=== PATIENT | male | born 1970 | race African-American/Black ===

== ENCOUNTER 2016-10-01 10:55 | Inpatient (IN) | payer OTHER ==
[2016-10-01 11:12] VITALS: BMI 26.6
--- NOTE | 2016-10-01 13:22 | HP ---
CIWA Score - CIWA Score Nausea/Vomitin-No Nausea/No Vomiting Muscle Tremors: 4-Moderate,w/Arms Extend Anxiety: 3 Agitation: 4-Moderately Restless Paroxysmal Sweats: 3 Orientation: 0-Oriented Tacttile Disturbances: 0-None Auditory Disturbances: 0-None Visual Disturbances: 0-None Headache: 0-None Present CIWA-Ar Total Score: 14 Admission ROS BHS - HPI Chief Complaint: I need to stop drinking and get it together. Allergies/Adverse Reactions: Allergies Allergy/AdvReac Type Severity Reaction Status Date / Time Iodine and Iodide Containing Allergy Severe Swelling Verified 10/01/16 11:36 Produc shellfish derived Allergy Severe Swelling Verified 10/01/16 11:36 No Known Drug Allergies Allergy Verified 10/01/16 11:36 History of Present Illness: pr Exam Limitations: No Limitations - Ebola screening Have you traveled outside of the country in the last 21 days: No Have you had contact with anyone from an Ebola affected area: No Have you been sick,other than usual withdrawal symptoms: No Do you have a fever: No - Review of Systems Constitutional: No Symptoms Reported, Night Sweats EENT: reports: No Symptoms Reported Respiratory: reports: No Symptoms reported Cardiac: reports: Syncope GI: reports: Diarrhea, Poor Fluid Intake : reports: No Symptoms Reported Musculoskeletal: reports: Joint Pain (shoulder pain left side) Integumentary: reports: Flushing, Sweating Neuro: reports: Tingling, Tremors Endocrine: reports: Excessive Sweating, Flushing, Intolerance to Cold, Intolerance to Heat Hematology: reports: No Symptoms Reported Psychiatric: reports: Judgement Intact, Mood/Affect Appropiate, Orientated x3, Agitated, Anxious Other Systems: Reviewed and Negative Patient History - Patient Medical History Hx Anemia: No Hx Asthma: No Hx Chronic Obstructive Pulmonary Disease (COPD): No Hx Cancer: No Hx Cardiac Disorders: No Hx Congestive Heart Failure: No Hx Hypertension: Yes Hx Hypercholesterolemia: No Hx Pacemaker: No HX Cerebrovascular Accident: No Hx Seizures: No Hx Dementia: No Hx Diabetes: No Hx Gastrointestinal Disorders: Yes (stomach ulcer) Hx Liver Disease: No Hx Genitourinary Disorders: No Hx Sexually Transmitted Disorders: No Hx Renal Disease (ESRD): No Hx Thyroid Disease: No Hx Human Immunodeficiency Virus (HIV): No (NEGATIVE HX) Hx Hepatitis C: No Hx Depression: Yes Hx Suicide Attempt: Yes (pill overdose at age 29) Hx Bipolar Disorder: Yes (diagnosed in 1997 with schizoeffective tendencies, wason depacote, seroquel) Hx Schizophrenia: Yes (schizoaffective disorder) - Patient Surgical History Past Surgical History: Yes Hx Neurologic Surgery: No Hx Cataract Extraction: No Hx Cardiac Surgery: No Hx Lung Surgery: No Hx Breast Surgery: No Hx Breast Biopsy: No Hx Abdominal Surgery: Yes (perforated peptic ulcer in [place] in 1990) Hx Appendectomy: No Hx Cholecystectomy: No Hx Genitourinary Surgery: No Hx Section: No Hx Orthopedic Surgery: No Anesthesia Reaction: No - PPD History Previous Implant?: Yes Documented Results: Positive w/o proof Results: (-) cxr-10/24/15 - Reproductive History Patient is a Female of Child Bearing Age (11 -55 yrs old): No - Smoking Cessation Smoking history: Current every day smoker Have you smoked in the past 12 months: Yes Aproximately how many cigarettes per day: 10 Cigars Per Day: 0 Hx Chewing Tobacco Use: No Initiated information on smoking cessation: Yes 'Breaking Loose' booklet given: 10/01/16 - Substance & Tx. History Hx Alcohol Use: Yes Hx Substance Use: Yes Substance Use Type: Alcohol, Cocaine, Marijuana Hx Substance Use Treatment: Yes - Substances Abused Cocaine Route: Inhalation Frequency: Daily Amount used: $60-70 Age of first use: 20 Date of Last Use: 09/30/16 Alcohol-bacilio/beer Route: Oral Frequency: Daily Amount used: 2-3 6 pks./3-4 pts. Age of first use: 14 Date of Last Use: 10/01/16 Marijuana Route: Smoking Frequency: 1-2 times per week Amount used: $20 Age of first use: 20 Date of Last Use: 09/30/16 Family Disease History - Family Disease History Family Disease History: Heart Disease: Mother (Heart attack), Other: Father ( alcohol ) Admission Physical Exam BHS - Vital Signs Vital Signs: Vital Signs - 24 hr 10/01/16 11:01 Temperature 96.0 F L Pulse Rate 91 H Respiratory 20 Rate Blood Pressure 135/86 - Physical General Appearance: Yes: Appropriately Dressed, Moderate Distress, Tremorous, Irritable, Sweating, Anxious HEENTM: Yes: Hearing grossly Normal, Normal Voice Respiratory: Yes: Chest Non-Tender, Lungs Clear, Normal Breath Sounds, Respiratory Distress Neck: Yes: No masses,lesions,Nodules Breast: Yes: Within Normal Limits Cardiology: Yes: Regular Rhythm, Regular Rate, S1, S2 Abdominal: Yes: Normal Bowel Sounds, Non Tender, Soft Genitourinary: Yes: Within Normal Limits Back: Yes: Normal Inspection Musculoskeletal: Yes: full range of Motion Extremities: Yes: Normal Capillary Refill, Normal Inspection, Non-Tender, Tremors Neurological: Yes: Fully Oriented, Alert, Normal Response Integumentary: Yes: Normal Color, Diaphoresis Lymphatic: Yes: Within Normal Limits - Diagnostic (1) Cannabis dependence Current Visit: Yes Status: Chronic (2) Cocaine dependence Current Visit: Yes Status: Chronic Qualifiers: Substance use status: uncomplicated Qualified Code(s): F14.20 - Cocaine dependence, uncomplicated (3) Nicotine dependence Current Visit: Yes Status: Chronic Qualifiers: Nicotine product type: cigarettes Substance use status: uncomplicated Qualified Code(s): F17.210 - Nicotine dependence, cigarettes, uncomplicated (4) Alcohol dependence with uncomplicated withdrawal Current Visit: Yes Status: Chronic (5) Hypertension Current Visit: Yes Status: Chronic Qualifiers: Hypertension type: essential hypertension Cleared for Admission [facility] - Detox or Rehab [facility] Level of Care: Medically Managed Detox Regimen/Protocol: Librium [facility] Breath Alcohol Content Breath Alcohol Content: 0.026 Urine Drug Screen - Results Drug Screen Negative: No Urine Drug Screen Results: THC-Marijuana, ISH-Cocaine
[2016-10-01] MEDS ORDERED: MENTHOL/PHENOL 1 EACH UD MM PRN (13:23)
[2016-10-01] MEDS ORDERED: IBUPROFEN 400 MG TABLET (FP) PO PRN (13:23)
[2016-10-01] MEDS ORDERED: MAGNESIUM CITRATE 300 ML BOTTLE PO PRN (13:23)
[2016-10-01] MEDS ORDERED: ACETAMINOPHEN 325 MG TABLET (FP) PO PRN (13:23)
[2016-10-01] MEDS ORDERED: diphenhydrAMINE HCL 50 MG CAPSULE PO PRN (13:23)
[2016-10-01] MEDS ORDERED: MAGNESIUM HYDROX 2400MG/30ML ORAL SUSPENSION 30 ML CUP PO PRN (13:23)
[2016-10-01] MEDS ORDERED: guaiFENesin/D-METHORPHAN HB 10 ML UNIT-DOSE CUPS PO PRN (13:23)
[2016-10-01] MEDS ORDERED: chlordiazePOXIDE HCL 25 MG CAPSULE PO PRN (13:23)
[2016-10-01] MEDS ORDERED: LOPERAMIDE HCL 2 MG CAPSULE PO PRN (13:23)
[2016-10-01] MEDS ORDERED: P-EPHED 60MG/TRIPROLIDI 2.5MG TABLET PO PRN (13:23)
[2016-10-01] MEDS ORDERED: MAG HYDROX/AL HYDROX/SIMETH 30 ML UNIT-DOSE CUP PO PRN (13:23)
[2016-10-01] MEDS ORDERED: hydrOXYzine PAMOATE 50 MG CAPSULE (FP) PO PRN (13:23)
[2016-10-01] MEDS: LISINOPRIL 10 MG TABLET (FP) PO SCH (13:49)
[2016-10-01] MEDS: HYDROCHLOROTHIAZIDE 25 MG TABLET (FP) PO SCH (13:49)
[2016-10-01] MEDS ORDERED: chlordiazePOXIDE HCL 25 MG CAPSULE PO ONE (14:00)
--- NOTE | 2016-10-01 16:37 | CONSULT ---
[facility] Psychiatric Consult - Data Date of interview: 10/02/16 Admission source: [facility] Identifying data: This is 46 years old male with Bipolar disorder history iontoxicated with: Alcohol, Cannabis, Cocaine, Opioids and Nicotine Substance Abuse History: Smoking history: Current every day smoker. Have you smoked in the past 12 months: Yes. Aproximately how many cigarettes per day: 10. Cigars Per Day: 0. Hx Chewing Tobacco Use: No. Initiated information on smoking cessation: Yes. 'Breaking Loose' booklet given: 10/01/16. - Substance & Tx. History. Hx Alcohol Use: Yes. Hx Substance Use: Yes. Substance Use Type : Alcohol, Cocaine, Marijuana. Hx Substance Use Treatment: Yes. - Substances Abused. Cocaine. Route: Inhalation. Frequency: Daily. Amount used: $60- 70. Age of first use: 20. Date of Last Use: 09/30/16. Alcohol-bacilio/ beer. Route: Oral. Frequency: Daily. Amount used: 2-3 6 pks./3-4 pts. Age of first use: 14. Date of Last Use: 10/01/16. Marijuana. Route: Smoking. Frequency: 1-2 times per week. Amount used: $20. Age of first use: 20. Date of Last Use: 09/30/16 Medical History: HTN, Anemia history, PPD+ hisotyr, Syncope history, Peptic Ulcer history Psychiatric History: Patient reports to carry Bipolar disorder with most recent psychiatric admission on: 2014 at [facility], reports currently taking: Trazodone 100mg po qhs. Seroquelm 100mg poqd, 300mg po qhs. Depakote 500mg po bid Physical/Sexual Abuse/Trauma History: Denies Additional Comment: Trazodone 100mg po qhs. Seroquelm 100mg poqd, 300mg po qhs. Depakote 500mg po bid Mental Status Exam - Mental Status Exam Alert and Oriented to: Person Cognitive Function: Fair Patient Appearance: Unkempt Mood: Anxious Affect: Appropriate Patient Behavior: Sedated Speech Pattern: Delayed Voice Loudness: Mildly Soft/Quiet Thought Process: Circumstantial Thought Disorder: Being Controlled Hallucinations: Denies Suicidal Ideation: Denies Homicidal Ideation: Denies Insight/Judgement: Fair Sleep: Difficulty falling asleep Appetite: Fair Muscle strength/Tone: Normal Gait/Station: Shuffling Additional Comments: Trazodone 100mg po qhs. Seroquelm 100mg poqd, 300mg po qhs. Depakote 500mg po bid Psychiatric Findings - Problem List ([place] 1, 2,3) (1) Alcohol dependence with uncomplicated withdrawal Status: Chronic (2) Cannabis dependence Status: Chronic (3) Cocaine dependence Status: Chronic Qualifiers: Substance use status: uncomplicated Qualified Code(s): F14.20 - Cocaine dependence, uncomplicated (4) Nicotine dependence Status: Chronic Qualifiers: Nicotine product type: cigarettes Substance use status: uncomplicated Qualified Code(s): F17.210 - Nicotine dependence, cigarettes, uncomplicated (5) Alcohol dependence Status: Acute (6) Opioid dependence Status: Acute (7) Schizoaffective disorder Status: Acute (8) Cannabis dependence, uncomplicated Status: Chronic (9) Opioid dependence with withdrawal Status: Chronic (10) Bipolar disorder Status: Acute - Initial Treatment Plan Initial Treatment Plan: Trazodone 100mg po qhs. Seroquelm 100mg poqd, 300mg po qhs. Depakote 500mg po bid
[2016-10-01] MEDS: chlordiazePOXIDE HCL 25 MG CAPSULE PO SCH ×2 (17:29→23:11)
[2016-10-01 20:04] LABS: URINE APPEARANCE CLEAR; URINE BILIRUBIN NEGATIVE (NEGATIVE); URINE BLOOD NEGATIVE (NEGATIVE); URINE COLOR LTYELLOW; URINE GLUCOSE (UA) NEGATIVE (NEGATIVE); URINE KETONE NEGATIVE (NEGATIVE); URINE LEUK ESTERASE NEGATIVE (NEGATIVE); URINE NITRITE NEGATIVE (NEGATIVE); URINE PROTEIN NEGATIVE (NEGATIVE); URINE UROBILINOGEN NEGATIVE E.U./dl (0.2-1.0)
[2016-10-01 20:35] LABS: HIV 1 & 2 AB NEGATIVE; HIV 1 AGp24 NEGATIVE
[2016-10-01] MEDS: THIAMINE HCL 100 MG TABLET (FP) PO SCH (23:11)
[2016-10-02] MEDS: chlordiazePOXIDE HCL 25 MG CAPSULE PO SCH ×4 (06:06→22:36)
[2016-10-02 09:49] LABS: MCH 30.2 pg (25.7-33.7); MCHC 32.9 g/dl (32.0-35.9); MEAN CELL VOLUME 91.9 fl (80-96); MEAN PLT VOLUME 10.2 fl (7.5-11.1); PLATELET COUNT 190 K/MM3 (134-434); RDW 14.5 % (11.9-15.9); WHITE BLOOD COUNT 8.6 K/mm3 (4.0-10.0)
[2016-10-02 10:16] LABS: ALBUMIN 3.5 g/dl (3.4-5.0); ALK PHOS 109 U/L (45-117); ANION GAP 7 (8-16); BILIRUBIN,TOTAL 0.3 mg/dL (0.2-1.0); CALCIUM 9.1 mg/dL (8.5-10.1); CO2 29 mmol/L (21-32); CREATININE 0.8 mg/dL (0.7-1.3); GLUCOSE,RANDOM 63 mg/dL (74-106); SGOT/AST 95 U/L (15-37); SGPT/ALT 336 U/L (12-78); TOT PROT 7.2 g/dl (6.4-8.2)
[2016-10-02] MEDS: PRENATAL VITAMINS W/ FOLIC ACID TABLET (FP) PO SCH (10:22)
[2016-10-02] MEDS: QUEtiapine FUMARATE 100 MG TABLET (FP) PO SCH (10:22)
[2016-10-02] MEDS: DIVALPROEX SODIUM 500 MG TABLET E.C. PO SCH ×2 (10:22→22:36)
[2016-10-02] MEDS: NICOTINE 21 MG/24 HOURS TOPICAL PATCH TD SCH (10:23)
[2016-10-02] MEDS: LISINOPRIL 10 MG TABLET (FP) PO SCH (10:24)
[2016-10-02] MEDS: HYDROCHLOROTHIAZIDE 25 MG TABLET (FP) PO SCH (10:24)
--- NOTE | 2016-10-02 10:56 | PN ---
[facility] CIWA - CIWA Score Nausea/Vomitin-No Nausea/No Vomiting Muscle Tremors: 4-Moderate,w/Arms Extend Anxiety: 3 Agitation: 4-Moderately Restless Paroxysmal Sweats: 3 Orientation: 0-Oriented Tacttile Disturbances: 0-None Auditory Disturbances: 0-None Visual Disturbances: 0-None Headache: 0-None Present CIWA-Ar Total Score: 14 BHS Progress Note (SOAP) Subjective: agitation anxiety sweats shakes interrupted sleep Objective: 10/02/16 10:54 Vital Signs Temperature 98.8 F 10/02/16 10:12 Pulse Rate 81 10/02/16 10:12 Respiratory Rate 18 10/02/16 10:12 Blood Pressure 143/91 10/02/16 10:12 O2 Sat by Pulse Oximetry (%) Laboratory Tests 10/01/16 10/01/16 10/01/16 12:30 13:15 14:00 WBC RBC Hgb Hct MCV MCHC RDW Plt Count MPV Sodium Potassium Chloride Carbon Dioxide Anion Gap BUN Creatinine Creat Clearance w eGFR Random Glucose Calcium Total Bilirubin AST ALT Alkaline Phosphatase Total Protein Albumin Urine Color Ltyellow Urine Appearance Clear Urine pH 7.0 Ur Specific [place] 1.011 Urine Protein Negative Urine Glucose (UA) Negative Urine Ketones Negative Urine Blood Negative Urine Nitrite Negative Urine Bilirubin Negative Urine Urobilinogen Negative Ur Leukocyte Esterase Negative Hepatitis C Antibody >11.0 H HIV 1&2 Antibody Screen Negative HIV P24 Antigen Negative 10/02/16 10/02/16 06:00 06:00 WBC 8.6 D RBC 4.13 Hgb 12.5 Hct 37.9 MCV 91.9 MCHC 32.9 RDW 14.5 Plt Count 190 MPV 10.2 Sodium 141 Potassium 4.0 Chloride 105 Carbon Dioxide 29 Anion Gap 7 L BUN 10 Creatinine 0.8 Creat Clearance w eGFR > 60 Random Glucose 63 L D Calcium 9.1 Total Bilirubin 0.3 D AST 95 H D ALT 336 H D Alkaline Phosphatase 109 D Total Protein 7.2 Albumin 3.5 Urine Color Urine Appearance Urine pH Ur Specific [place] Urine Protein Urine Glucose (UA) Urine Ketones Urine Blood Urine Nitrite Urine Bilirubin Urine Urobilinogen Ur Leukocyte Esterase Hepatitis C Antibody HIV 1&2 Antibody Screen HIV P24 Antigen elevated ast/alt; repeat labs d/c tylenol awake/alert ambulating no acute distress Assessment: 10/02/16 10:55 withdrawal sx Plan: continue detox increase fluids f/u pending labs
--- NOTE | 2016-10-02 12:54 | EKG ---
Test Reason : Blood Pressure : / mmHG Vent. Rate : 089 BPM Atrial Rate : 089 BPM P-R Int : 158 ms QRS Dur : 096 ms QT Int : 344 ms P-R-T Axes : 057 073 010 degrees QTc Int : 418 ms NORMAL SINUS RHYTHM VOLTAGE CRITERIA FOR LEFT VENTRICULAR HYPERTROPHY ABNORMAL ECG NO PREVIOUS ECGS AVAILABLE Confirmed by DOLLY PARKS MD ([id number]) on 10/02/2016 12:53:49 PM Referred By: Confirmed By:DOLLY PARKS MD
[2016-10-02] MEDS: traZODone HCL 100 MG TABLET (FP) PO SCH (22:36)
[2016-10-02] MEDS: QUEtiapine FUMARATE 300 MG TABLET PO SCH (22:36)
[2016-10-02] MEDS: THIAMINE HCL 100 MG TABLET (FP) PO SCH (22:36)
[2016-10-03] MEDS: chlordiazePOXIDE HCL 25 MG CAPSULE PO SCH ×2 (06:01→10:59)
[2016-10-03 09:58] LABS: SGOT/AST 98 U/L (15-37); SGPT/ALT 321 U/L (12-78)
--- NOTE | 2016-10-03 10:05 | PN ---
S CIWA - CIWA Score Nausea/Vomitin Muscle Tremors: 3 Anxiety: 3 Agitation: 2 Paroxysmal Sweats: 1-Minimal Palms Moist Orientation: 0-Oriented Tacttile Disturbances: 1-Very Mild Itch/Numbness Auditory Disturbances: 1-Very Mild Visual Disturbances: 1-Very Mild Sensitivity Headache: 2-Mild CIWA-Ar Total Score: 17 BHS Progress Note (SOAP) Subjective: ALERT,IRRITABLE,ANXIOUS,INTERRUPTED SLEEP,TREMOR Objective: 10/03/16 10:04 Vital Signs Temperature 97.9 F 10/03/16 09:43 Pulse Rate 98 H 10/03/16 09:43 Respiratory Rate 20 10/03/16 09:43 Blood Pressure 130/89 10/03/16 09:43 O2 Sat by Pulse Oximetry (%) REPEAT ALT.AST PENDING Assessment: 10/03/16 10:05 WITHDRAWAL SYMPTOM Plan: CONTINUE DETOX
[2016-10-03] MEDS: NICOTINE 21 MG/24 HOURS TOPICAL PATCH TD SCH (10:58)
[2016-10-03] MEDS: QUEtiapine FUMARATE 100 MG TABLET (FP) PO SCH (10:59)
[2016-10-03] MEDS: HYDROCHLOROTHIAZIDE 25 MG TABLET (FP) PO SCH (10:59)
[2016-10-03] MEDS: LISINOPRIL 10 MG TABLET (FP) PO SCH (10:59)
[2016-10-03] MEDS: DIVALPROEX SODIUM 500 MG TABLET E.C. PO SCH ×2 (10:59→22:55)
[2016-10-03] MEDS: NICOTINE POLACRILEX 4 MG GUM BC PRN ×2 (10:59→14:32)
[2016-10-03] MEDS: PRENATAL VITAMINS W/ FOLIC ACID TABLET (FP) PO SCH (10:59)
[2016-10-03] MEDS: chlordiazePOXIDE 5 MG CAPSULE PO SCH ×2 (17:55→23:08)
[2016-10-03] MEDS: QUEtiapine FUMARATE 300 MG TABLET PO SCH (22:55)
[2016-10-03] MEDS: THIAMINE HCL 100 MG TABLET (FP) PO SCH (22:55)
[2016-10-03] MEDS: traZODone HCL 100 MG TABLET (FP) PO SCH (22:55)
[2016-10-04 00:06] LABS: HCV LOG 10 5.372 (.)
[2016-10-04] MEDS: chlordiazePOXIDE 5 MG CAPSULE PO SCH ×2 (05:32→10:45)
--- NOTE | 2016-10-04 10:34 | PN ---
S Progress Note (SOAP) Subjective: ALERT,IRRITABLE,ANXIOUS,INTERRUPTED SLEEP Objective: 10/04/16 10:28 Vital Signs Temperature 97.9 F 10/04/16 10:00 Pulse Rate 102 H 10/04/16 10:00 Respiratory Rate 18 10/04/16 10:00 Blood Pressure 131/90 10/04/16 10:00 O2 Sat by Pulse Oximetry (%) Abnormal Lab Results 10/03/16 07:00 Valproic Acid 45.530 L 10/04/16 10:29 Laboratory Last Values WBC 8.6 K/mm3 (4.0-10.0) D 10/02/16 06:00 RBC 4.13 M/mm3 (4.00-5.60) 10/02/16 06:00 Hgb 12.5 GM/dL (11.7-16.9) 10/02/16 06:00 Hct 37.9 % (35.4-49) 10/02/16 06:00 MCV 91.9 fl (80-96) 10/02/16 06:00 MCHC 32.9 g/dl (32.0-35.9) 10/02/16 06:00 RDW 14.5 % (11.9-15.9) 10/02/16 06:00 Plt Count 190 K/MM3 (134-434) 10/02/16 06:00 MPV 10.2 fl (7.5-11.1) 10/02/16 06:00 Sodium 141 mmol/L (136-145) 10/02/16 06:00 Potassium 4.0 mmol/L (3.5-5.1) 10/02/16 06:00 Chloride 105 mmol/L (98-107) 10/02/16 06:00 Carbon Dioxide 29 mmol/L (21-32) 10/02/16 06:00 Anion Gap 7 (8-16) L 10/02/16 06:00 BUN 10 mg/dL (7-18) 10/02/16 06:00 Creatinine 0.8 mg/dL (0.7-1.3) 10/02/16 06:00 Creat Clearance w eGFR > 60 (>60) 10/02/16 06:00 Random Glucose 63 mg/dL (74-106) L D 10/02/16 06:00 Calcium 9.1 mg/dL (8.5-10.1) 10/02/16 06:00 Total Bilirubin 0.3 mg/dL (0.2-1.0) D 10/02/16 06:00 AST 98 U/L (15-37) H 10/03/16 07:00 ALT 321 U/L (12-78) H 10/03/16 07:00 Alkaline Phosphatase 109 U/L (45-117) D 10/02/16 06:00 Total Protein 7.2 g/dl (6.4-8.2) 10/02/16 06:00 Albumin 3.5 g/dl (3.4-5.0) 10/02/16 06:00 Urine Color Ltyellow 10/01/16 14:00 Urine Appearance Clear 10/01/16 14:00 Urine pH 7.0 (5.0-8.0) 10/01/16 14:00 Ur Specific [place] 1.011 (1.001-1.035) 10/01/16 14:00 Urine Protein Negative (NEGATIVE) 10/01/16 14:00 Urine Glucose (UA) Negative (NEGATIVE) 10/01/16 14:00 Urine Ketones Negative (NEGATIVE) 10/01/16 14:00 Urine Blood Negative (NEGATIVE) 10/01/16 14:00 Urine Nitrite Negative (NEGATIVE) 10/01/16 14:00 Urine Bilirubin Negative (NEGATIVE) 10/01/16 14:00 Urine Urobilinogen Negative E.U./dl (0.2-1.0) 10/01/16 14:00 Ur Leukocyte Esterase Negative (NEGATIVE) 10/01/16 14:00 Valproic Acid 45.530 ug/ml (50-100) L 10/03/16 07:00 RPR Titer Nonreactive (NONREACTIVE) 10/02/16 06:00 Hepatitis C Antibody >11.0 s/co ratio (0.0-0.9) H 10/01/16 13:15 HCV Quantitation [id number] IU/mL (.) 10/02/16 08:13 HCV RNA log copies/mL 5.372 (.) 10/02/16 08:13 HIV 1&2 Antibody Screen Negative 10/01/16 12:30 HIV P24 Antigen Negative 10/01/16 12:30 PATIENT WILL GO TO SEE HIS PMD AND SPECIALIST AT [facility] FOR EVALUATION AND TREATMENT AT [facility] UPON DISCHARGE Assessment: 10/04/16 10:34 WITHDRAWAL SYMPTOM Plan: CONTINUE DETOX,DISCHARGE IN AM
[2016-10-04] MEDS: NICOTINE 21 MG/24 HOURS TOPICAL PATCH TD SCH (10:45)
[2016-10-04] MEDS: HYDROCHLOROTHIAZIDE 25 MG TABLET (FP) PO SCH (10:45)
[2016-10-04] MEDS: LISINOPRIL 10 MG TABLET (FP) PO SCH (10:45)
[2016-10-04] MEDS: DIVALPROEX SODIUM 500 MG TABLET E.C. PO SCH ×2 (10:45→22:44)
[2016-10-04] MEDS: QUEtiapine FUMARATE 100 MG TABLET (FP) PO SCH (10:45)
[2016-10-04] MEDS: PRENATAL VITAMINS W/ FOLIC ACID TABLET (FP) PO SCH (10:46)
[2016-10-04] MEDS: NICOTINE POLACRILEX 4 MG GUM BC PRN (11:21)
--- NOTE | 2016-10-04 13:34 | PN ---
S Progress Note Note: PATIENT IS STABLE FOR DISCHARGE TODAY TO GO TO [facility]
--- NOTE | 2016-10-04 13:39 | DS ---
[facility] Detox Discharge Summary Admission Date: 10/01/16 Discharge Date: 10/04/16 - History Present History: Alcohol Dependence, Cannabis Dependence, Cocaine Dependence Additional Comments: FOLLOW UP WITH [facility] Pertinent Past History: HYPERTENSION NICOTINE DEPENDENCE BIOLAR DISORDER - Physical Exam Results Vital Signs: Vital Signs Temperature 97.9 F 10/04/16 10:00 Pulse Rate 102 H 10/04/16 10:00 Respiratory Rate 18 10/04/16 10:00 Blood Pressure 131/90 10/04/16 10:00 O2 Sat by Pulse Oximetry (%) Pertinent Admission Physical Exam Findings: WITHDRAWAL SYMPTOM - Treatment Hospital Course: Detox Protocol Followed, Detoxed Safely, Responded well, Discharged Condition Good, Rehab Referral Accepted Patient has Accepted a Rehab Referral to: [facility] - Medication Discharge Medications: Ambulatory Orders Hydrochlorothiazide [Hctz -] 25 mg PO DAILY #30 tablet 02/28/15 Lisinopril [Prinivil] 10 mg PO DAILY #30 tablet 02/28/15 Divalproex [Depakote -] 500 mg PO BID #60 tablet.ec 10/24/15 Quetiapine Fumarate [Seroquel] 100 mg PO DAILY #30 tablet 10/24/15 Quetiapine Fumarate [Seroquel] 300 mg PO HS #30 tablet 10/24/15 Trazodone HCl [Desyrel -] 100 mg PO HS #30 tablet 10/24/15 Divalproex [Depakote -] 500 mg PO BID #60 tablet.ec 10/02/16 Quetiapine Fumarate [Seroquel -] 300 mg PO HS #30 tab 10/02/16 Quetiapine Fumarate [Seroquel] 100 mg PO DAILY #30 tablet 10/02/16 Trazodone HCl [Desyrel -] 100 mg PO HS #30 tablet 10/02/16 - Diagnosis (1) Bipolar disorder Current Visit: Yes Status: Acute (2) Alcohol dependence with uncomplicated withdrawal Current Visit: Yes Status: Chronic (3) Cannabis dependence Current Visit: Yes Status: Chronic (4) Cocaine dependence Current Visit: Yes Status: Chronic Qualifiers: Substance use status: uncomplicated Qualified Code(s): F14.20 - Cocaine dependence, uncomplicated (5) Hypertension Current Visit: Yes Status: Chronic Qualifiers: Hypertension type: essential hypertension (6) Nicotine dependence Current Visit: Yes Status: Chronic Qualifiers: Nicotine product type: cigarettes Substance use status: uncomplicated Qualified Code(s): F17.210 - Nicotine dependence, cigarettes, uncomplicated - AMA Did Patient Leave Against Medical Advice: No
--- NOTE | 2016-10-04 15:22 | PN ---
[facility] Progress Note Note: ADDENDUM PATIENT WILL STAY IN DETOX TODAY,DISCHARGE IN AM
[2016-10-04] MEDS: chlordiazePOXIDE HCL 10 MG CAPSULE PO SCH ×2 (17:50→22:55)
[2016-10-04] MEDS: THIAMINE HCL 100 MG TABLET (FP) PO SCH (22:44)
[2016-10-04] MEDS: QUEtiapine FUMARATE 300 MG TABLET PO SCH (22:44)
[2016-10-04] MEDS: traZODone HCL 100 MG TABLET (FP) PO SCH (22:44)
[2016-10-05] MEDS: chlordiazePOXIDE HCL 10 MG CAPSULE PO SCH (06:40)
--- NOTE | 2016-10-05 10:21 | PN ---
[facility] Progress Note Note: Pt. was not d/c on 10/04, he decided to complete detox. Vital Signs - 8 hr 10/05/16 10/05/16 03:30 06:00 Temperature 97.3 F L Pulse Rate 97 H Respiratory 18 18 Rate Blood Pressure 120/87 D/C pt. today
[2016-10-05 10:41] VITALS: BP 137/88; PULSE 110; TEMP 97.2
== END 2016-10-05 09:30 | disposition home or self-care (01) | DRG 774 ==
LOC: YASAS 10:55 → Y6N 12:54
PROVIDERS: ADMIT Internal Medicine Addiction Medicine; ATTEND Internal Medicine Addiction Medicine
PROC: HZ2ZZZZ Detoxification Services for Substance Abuse Treatment (ICD-10-PCS; principal; 2016-10-05)
DX: F10.230 Alcohol dependence with withdrawal, uncomplicated (principal); F14.20 Cocaine dependence, uncomplicated; F12.20 Cannabis dependence, uncomplicated; F17.210 Nicotine dependence, cigarettes, uncomplicated; F31.9 Bipolar disorder, unspecified; F25.9 Schizoaffective disorder, unspecified; I10 Essential (primary) hypertension
CPT/HCPCS: 36415; 80053; 80164; 81003; 84450; 84460; 85027; 86593; 87389; 87522; 93005; 93010

== ENCOUNTER 2016-10-10 11:15 | Inpatient (IN) | payer OTHER ==
[2016-10-10 12:21] VITALS: BMI 27.1
--- NOTE | 2016-10-10 14:11 | HP ---
[facility] Rehab Assess/Revision - Admission History Admitted to Rehab from: [facility] Date of Admission to Rehab: 10/10/16 - Vital signs Vital Signs: Vital Signs Period Temp Pulse Resp BP Sys/Y[place]y Pulse Ox Last 24 Hr 95.5 F 80 18 118/83 - Findings Detox History & Physical reviewed: Yes Concur with findings: Yes Comments/Additional Findings: FOR REHAB PROTOCOL
[2016-10-10] MEDS ORDERED: diphenhydrAMINE HCL 50 MG CAPSULE PO PRN (15:31)
[2016-10-10] MEDS ORDERED: LOPERAMIDE HCL 2 MG CAPSULE PO PRN (15:31)
[2016-10-10] MEDS ORDERED: MAGNESIUM CITRATE 300 ML BOTTLE PO PRN (15:31)
[2016-10-10] MEDS ORDERED: ACETAMINOPHEN 325 MG TABLET (FP) PO PRN (15:31)
[2016-10-10] MEDS ORDERED: MAG HYDROX/AL HYDROX/SIMETH 30 ML UNIT-DOSE CUP PO PRN (15:31)
[2016-10-10] MEDS ORDERED: guaiFENesin/D-METHORPHAN HB 10 ML UNIT-DOSE CUPS PO PRN (15:31)
[2016-10-10] MEDS ORDERED: MENTHOL/PHENOL 1 EACH UD MM PRN (15:31)
[2016-10-10] MEDS ORDERED: MAGNESIUM HYDROX 2400MG/30ML ORAL SUSPENSION 30 ML CUP PO PRN (15:31)
[2016-10-10] MEDS ORDERED: hydrOXYzine PAMOATE 50 MG CAPSULE (FP) PO PRN (15:32)
[2016-10-10] MEDS: DIVALPROEX SODIUM 500 MG TABLET E.C. PO SCH (22:20)
[2016-10-10] MEDS: THIAMINE HCL 100 MG TABLET (FP) PO SCH (22:21)
[2016-10-10] MEDS: traZODone HCL 100 MG TABLET (FP) PO SCH (22:21)
[2016-10-10] MEDS: QUEtiapine FUMARATE 300 MG TABLET PO SCH (22:21)
[2016-10-11] MEDS: DIVALPROEX SODIUM 500 MG TABLET E.C. PO SCH ×2 (10:19→21:48)
[2016-10-11] MEDS: QUEtiapine FUMARATE 100 MG TABLET (FP) PO SCH (10:19)
[2016-10-11] MEDS: HYDROCHLOROTHIAZIDE 25 MG TABLET (FP) PO SCH (10:19)
[2016-10-11] MEDS: PRENATAL VITAMINS W/ FOLIC ACID TABLET (FP) PO SCH (10:19)
[2016-10-11] MEDS: LISINOPRIL 10 MG TABLET (FP) PO SCH (10:20)
--- NOTE | 2016-10-11 11:07 | HP ---
Psychiatrist Admission - Data Date of interview: 10/11/16 Admission source: [facility] Identifying data: This is one of the several inpatient rehabilitation admissions for this 46 year old single father of 3 grown children, who is unemployed and supported on SSD/SSI, residing alone in the [facility] apartment. Medical History: Hep C, smokes cigarettes 1/2/ppd. Psychiatric History: Patient reports history of Schizoaffectiv edisorder, multiple psychiatric hospitalizations.First in to [facility] depression, psychosis, reports he was erratic, delusional. He reports 10 of 15 subsequent hospitalizations with most recent in 2012 to [facility]. Reports was hospiatlized at [facility]. Sees the psychiatrist at [facility], sukhjinder on Depakote 500 mg po bid, Seroquel 100 mg poam and 300 mg po hs and Trazodone 100 mg po hs. Reports one suicidal attempt as pill overdose after his mother;s in 1999. Physical/Sexual Abuse/Trauma History: dEnies Vital Signs: Vital Signs - 24 hr 10/10/16 10/10/16 10/11/16 12:08 15:38 00:36 Temperature 95.5 F L 97.2 F L Pulse Rate 80 82 Respiratory 18 18 18 Rate Blood Pressure 118/83 154/92 10/11/16 10/11/16 10/11/16 03:29 07:05 10:00 Temperature 97.8 F Pulse Rate 78 71 Respiratory 18 18 Rate Blood Pressure 133/83 153/100 Allergies/Adverse Reactions: Allergies Allergy/AdvReac Type Severity Reaction Status Date / Time Iodine and Iodide Containing Allergy Severe Swelling Verified 10/10/16 15:35 Produc shellfish derived Allergy Severe Swelling Verified 10/10/16 15:35 No Known Drug Allergies Allergy Verified 10/10/16 15:35 Concur with the findings of this exam: Yes - Substance Abuse/Tx History Hx Alcohol Use: Yes (2-3 pints of vodka) Substance Use Type: Cocaine ($30 3- times a week), Marijuana Hx Substance Use Treatment: Yes - Admission Criteria Previous failed treatment: Yes Poor recovery environment: Yes Comorbidities: Yes Lacks judgement: Yes Mental Status Exam - Mental Status Exam Alert and Oriented to: Time, Place, Person Cognitive Function: Good Patient Appearance: Well Groomed Mood: Hopeful Affect: Appropriate, Mood Congruent Patient Behavior: Appropriate, Cooperative Speech Pattern: Clear, Appropriate Voice Loudness: Normal Thought Process: Intact, Goal Oriented Thought Disorder: Not Present Hallucinations: Denies Suicidal Ideation: Denies Homicidal Ideation: Denies Insight/Judgement: Fair Sleep: Fair Appetite: Fair Muscle strength/Tone: Normal Gait/Station: Normal Psychiatric Findings - Problem List ([place] 1, 2,3) (1) Alcohol dependence Current Visit: No Status: Acute (2) Schizoaffective disorder Current Visit: No Status: Acute (3) Cannabis dependence, uncomplicated Current Visit: No Status: Chronic (4) Cocaine dependence Current Visit: No Status: Chronic Qualifiers: Substance use status: uncomplicated Qualified Code(s): F14.20 - Cocaine dependence, uncomplicated (5) Nicotine dependence Current Visit: No Status: Chronic Qualifiers: Nicotine product type: cigarettes Substance use status: uncomplicated Qualified Code(s): F17.210 - Nicotine dependence, cigarettes, uncomplicated - Initial Treatment Plan Initial Treatment Plan: will continue his medications, monitor rpogress as needed.
[2016-10-11] MEDS: NICOTINE POLACRILEX 2 MG GUM BUC PRN (14:09)
--- NOTE | 2016-10-11 15:47 | PN ---
[facility] Progress Note Note: CALLED FOR PT WITH ELEVATED BP 151/99 NOT DECREASING WITH BP MEDS IN CONSECUTIVE MEASUREMENTS. PLAN: CLONIDINE 0.1 MG PO X ONE DOSE.
[2016-10-11] MEDS ORDERED: cloNIDine HCL 0.1 MG TABLET PO ONE (16:00)
[2016-10-11] MEDS: QUEtiapine FUMARATE 300 MG TABLET PO SCH (21:48)
[2016-10-11] MEDS: traZODone HCL 100 MG TABLET (FP) PO SCH (21:48)
[2016-10-11] MEDS: THIAMINE HCL 100 MG TABLET (FP) PO SCH (21:49)
[2016-10-12] MEDS: DIVALPROEX SODIUM 500 MG TABLET E.C. PO SCH ×2 (10:44→21:20)
[2016-10-12] MEDS: QUEtiapine FUMARATE 100 MG TABLET (FP) PO SCH (10:44)
[2016-10-12] MEDS: LISINOPRIL 10 MG TABLET (FP) PO SCH (10:44)
[2016-10-12] MEDS: HYDROCHLOROTHIAZIDE 25 MG TABLET (FP) PO SCH (10:44)
[2016-10-12] MEDS: PRENATAL VITAMINS W/ FOLIC ACID TABLET (FP) PO SCH (10:44)
[2016-10-12] MEDS: NICOTINE POLACRILEX 2 MG GUM BUC PRN (10:45)
[2016-10-12] MEDS: QUEtiapine FUMARATE 300 MG TABLET PO SCH (21:20)
[2016-10-12] MEDS: traZODone HCL 100 MG TABLET (FP) PO SCH (21:20)
[2016-10-12] MEDS: THIAMINE HCL 100 MG TABLET (FP) PO SCH (21:20)
[2016-10-13] MEDS: QUEtiapine FUMARATE 100 MG TABLET (FP) PO SCH (10:34)
[2016-10-13] MEDS: LISINOPRIL 10 MG TABLET (FP) PO SCH (10:34)
[2016-10-13] MEDS: DIVALPROEX SODIUM 500 MG TABLET E.C. PO SCH ×2 (10:34→21:19)
[2016-10-13] MEDS: PRENATAL VITAMINS W/ FOLIC ACID TABLET (FP) PO SCH (10:34)
[2016-10-13] MEDS: HYDROCHLOROTHIAZIDE 25 MG TABLET (FP) PO SCH (10:34)
[2016-10-13] MEDS: THIAMINE HCL 100 MG TABLET (FP) PO SCH (21:18)
[2016-10-13] MEDS: QUEtiapine FUMARATE 300 MG TABLET PO SCH (21:19)
[2016-10-13] MEDS: traZODone HCL 100 MG TABLET (FP) PO SCH (21:19)
[2016-10-14] MEDS: QUEtiapine FUMARATE 100 MG TABLET (FP) PO SCH (09:47)
[2016-10-14] MEDS: DIVALPROEX SODIUM 500 MG TABLET E.C. PO SCH ×2 (09:47→21:13)
[2016-10-14] MEDS: PRENATAL VITAMINS W/ FOLIC ACID TABLET (FP) PO SCH (09:47)
[2016-10-14] MEDS: HYDROCHLOROTHIAZIDE 25 MG TABLET (FP) PO SCH (09:47)
[2016-10-14] MEDS: LISINOPRIL 10 MG TABLET (FP) PO SCH (09:48)
[2016-10-14] MEDS: traZODone HCL 100 MG TABLET (FP) PO SCH (21:13)
[2016-10-14] MEDS: QUEtiapine FUMARATE 300 MG TABLET PO SCH (21:13)
[2016-10-14] MEDS: THIAMINE HCL 100 MG TABLET (FP) PO SCH (21:13)
[2016-10-15] MEDS: DIVALPROEX SODIUM 500 MG TABLET E.C. PO SCH ×2 (10:01→21:05)
[2016-10-15] MEDS: PRENATAL VITAMINS W/ FOLIC ACID TABLET (FP) PO SCH (10:01)
[2016-10-15] MEDS: HYDROCHLOROTHIAZIDE 25 MG TABLET (FP) PO SCH (10:01)
[2016-10-15] MEDS: QUEtiapine FUMARATE 100 MG TABLET (FP) PO SCH (10:01)
[2016-10-15] MEDS: LISINOPRIL 10 MG TABLET (FP) PO SCH (10:01)
[2016-10-15] MEDS: P-EPHED 60MG/TRIPROLIDI 2.5MG TABLET PO PRN ×2 (14:20→21:06)
--- NOTE | 2016-10-15 17:02 | EKG ---
Test Reason : Blood Pressure : / mmHG Vent. Rate : 094 BPM Atrial Rate : 094 BPM P-R Int : 162 ms QRS Dur : 098 ms QT Int : 356 ms P-R-T Axes : 075 065 038 degrees QTc Int : 445 ms NORMAL SINUS RHYTHM POSSIBLE LEFT ATRIAL ENLARGEMENT LEFT VENTRICULAR HYPERTROPHY NONSPECIFIC T WAVE ABNORMALITY ABNORMAL ECG WHEN COMPARED WITH ECG OF 01-OCT-2016 13:41, NO SIGNIFICANT CHANGE WAS FOUND Confirmed by ALBERT ANDERSON, PEEWEE ([id number]) on 10/15/2016 5:01:47 PM Referred By: Sandy Agudelo Confirmed By:PEEWEE PRICE MD
[2016-10-15] MEDS: QUEtiapine FUMARATE 300 MG TABLET PO SCH (21:05)
[2016-10-15] MEDS: traZODone HCL 100 MG TABLET (FP) PO SCH (21:05)
[2016-10-15] MEDS: THIAMINE HCL 100 MG TABLET (FP) PO SCH (21:05)
[2016-10-16] MEDS: LISINOPRIL 10 MG TABLET (FP) PO SCH (10:04)
[2016-10-16] MEDS: HYDROCHLOROTHIAZIDE 25 MG TABLET (FP) PO SCH (10:04)
[2016-10-16] MEDS: QUEtiapine FUMARATE 100 MG TABLET (FP) PO SCH (10:04)
[2016-10-16] MEDS: PRENATAL VITAMINS W/ FOLIC ACID TABLET (FP) PO SCH (10:04)
[2016-10-16] MEDS: DIVALPROEX SODIUM 500 MG TABLET E.C. PO SCH ×2 (10:04→21:02)
[2016-10-16] MEDS: P-EPHED 60MG/TRIPROLIDI 2.5MG TABLET PO PRN (10:06)
[2016-10-16] MEDS: QUEtiapine FUMARATE 300 MG TABLET PO SCH (21:02)
[2016-10-16] MEDS: THIAMINE HCL 100 MG TABLET (FP) PO SCH (21:02)
[2016-10-16] MEDS: traZODone HCL 100 MG TABLET (FP) PO SCH (21:02)
[2016-10-17] MEDS: PRENATAL VITAMINS W/ FOLIC ACID TABLET (FP) PO SCH (10:23)
[2016-10-17] MEDS: LISINOPRIL 10 MG TABLET (FP) PO SCH (10:23)
[2016-10-17] MEDS: DIVALPROEX SODIUM 500 MG TABLET E.C. PO SCH ×2 (10:23→21:00)
[2016-10-17] MEDS: HYDROCHLOROTHIAZIDE 25 MG TABLET (FP) PO SCH (10:23)
[2016-10-17] MEDS: QUEtiapine FUMARATE 100 MG TABLET (FP) PO SCH (10:23)
--- NOTE | 2016-10-17 13:54 | PN ---
[facility] Progress Note Note: c/o left shoulder pain + dolar on flexion imp shoulder pain /?tendinitis plan motrin prn lidocaine patch /d
[2016-10-17] MEDS ORDERED: LIDOCAINE 5% TOPICAL PATCH TP ONE (14:00)
[2016-10-17] MEDS: QUEtiapine FUMARATE 300 MG TABLET PO SCH (21:00)
[2016-10-17] MEDS: traZODone HCL 100 MG TABLET (FP) PO SCH (21:00)
[2016-10-17] MEDS: THIAMINE HCL 100 MG TABLET (FP) PO SCH (21:00)
[2016-10-18] MEDS: QUEtiapine FUMARATE 100 MG TABLET (FP) PO SCH (09:44)
[2016-10-18] MEDS: HYDROCHLOROTHIAZIDE 25 MG TABLET (FP) PO SCH (09:44)
[2016-10-18] MEDS: LISINOPRIL 10 MG TABLET (FP) PO SCH (09:44)
[2016-10-18] MEDS: PRENATAL VITAMINS W/ FOLIC ACID TABLET (FP) PO SCH (09:44)
[2016-10-18] MEDS: DIVALPROEX SODIUM 500 MG TABLET E.C. PO SCH ×2 (09:44→21:03)
[2016-10-18] MEDS: LIDOCAINE 5% TOPICAL PATCH TP SCH (09:45)
[2016-10-18] MEDS: IBUPROFEN 400 MG TABLET (FP) PO PRN (12:05)
[2016-10-18] MEDS: THIAMINE HCL 100 MG TABLET (FP) PO SCH (21:03)
[2016-10-18] MEDS: QUEtiapine FUMARATE 300 MG TABLET PO SCH (21:03)
[2016-10-18] MEDS: traZODone HCL 100 MG TABLET (FP) PO SCH (21:03)
[2016-10-19] MEDS: DIVALPROEX SODIUM 500 MG TABLET E.C. PO SCH ×2 (10:30→21:02)
[2016-10-19] MEDS: HYDROCHLOROTHIAZIDE 25 MG TABLET (FP) PO SCH (10:30)
[2016-10-19] MEDS: PRENATAL VITAMINS W/ FOLIC ACID TABLET (FP) PO SCH (10:30)
[2016-10-19] MEDS: QUEtiapine FUMARATE 100 MG TABLET (FP) PO SCH (10:31)
[2016-10-19] MEDS: LIDOCAINE 5% TOPICAL PATCH TP SCH (10:31)
[2016-10-19] MEDS: IBUPROFEN 400 MG TABLET (FP) PO PRN ×2 (10:31→17:08)
[2016-10-19] MEDS: LISINOPRIL 10 MG TABLET (FP) PO SCH (10:31)
[2016-10-19] MEDS: THIAMINE HCL 100 MG TABLET (FP) PO SCH (21:02)
[2016-10-19] MEDS: QUEtiapine FUMARATE 300 MG TABLET PO SCH (21:02)
[2016-10-19] MEDS: traZODone HCL 100 MG TABLET (FP) PO SCH (21:02)
[2016-10-20] MEDS: IBUPROFEN 400 MG TABLET (FP) PO PRN ×2 (05:19→15:41)
[2016-10-20] MEDS ORDERED: IBUPROFEN 400 MG TABLET (FP) PO ONE ×2 (06:44→16:56)
[2016-10-20 07:17] VITALS: TEMP 97.4
[2016-10-20 09:23] VITALS: BP 143/107; PULSE 98
[2016-10-20] MEDS: DIVALPROEX SODIUM 500 MG TABLET E.C. PO SCH ×2 (10:46→21:15)
[2016-10-20] MEDS: LIDOCAINE 5% TOPICAL PATCH TP SCH (10:47)
[2016-10-20] MEDS: LISINOPRIL 10 MG TABLET (FP) PO SCH (10:47)
[2016-10-20] MEDS: HYDROCHLOROTHIAZIDE 25 MG TABLET (FP) PO SCH (10:47)
[2016-10-20] MEDS: PRENATAL VITAMINS W/ FOLIC ACID TABLET (FP) PO SCH (10:47)
[2016-10-20] MEDS: QUEtiapine FUMARATE 100 MG TABLET (FP) PO SCH (10:47)
[2016-10-20] MEDS ORDERED: CYCLOBENZAPRINE HCL 10 MG TABLET (FP) PO ONE (16:57)
[2016-10-20] MEDS ORDERED: IBUPROFEN 400 MG TABLET (FP) PO PRN (16:58)
--- NOTE | 2016-10-20 20:24 | PN ---
[facility] Progress Note Note: Patient was d/c today.He decided to leave due to the medical issues.He will see his PCP tomorrow.Patient has met his treatment goals partially and will continue current medications as per plan.Scripts for 30 days provided.
[2016-10-20] MEDS: QUEtiapine FUMARATE 300 MG TABLET PO SCH (21:15)
[2016-10-20] MEDS: THIAMINE HCL 100 MG TABLET (FP) PO SCH (21:15)
[2016-10-20] MEDS: traZODone HCL 100 MG TABLET (FP) PO SCH (21:15)
[2016-10-20] MEDS ORDERED: CYCLOBENZAPRINE HCL 10 MG TABLET (FP) PO SCH (22:00)
== END 2016-10-20 21:25 | disposition home or self-care (01) | DRG 772 ==
LOC: YASAS 11:15 → Y5N 14:18
PROVIDERS: ADMIT Psychiatry & Neurology Psychiatry; ATTEND Psychiatry & Neurology Psychiatry
PROC: HZ42ZZZ Group Counseling for Substance Abuse Treatment, Cognitive-Behavioral (ICD-10-PCS; principal; 2016-10-20)
DX: F10.20 Alcohol dependence, uncomplicated (principal); F14.20 Cocaine dependence, uncomplicated; F12.20 Cannabis dependence, uncomplicated; F17.210 Nicotine dependence, cigarettes, uncomplicated; F25.9 Schizoaffective disorder, unspecified
CPT/HCPCS: 71010-TC; 93005; 93010

== ENCOUNTER 2017-11-24 08:13 | Inpatient (IN) | payer OTHER ==
[2017-11-24 10:20] VITALS: BMI 26.9
--- NOTE | 2017-11-24 13:16 | HP ---
COWS - Scale Resting Pulse: 0= [place] 80 or Below Sweatin=Flushed/Facial Moisture Restless Observation: 1= Difficult to Sit Still Pupil Size: 0= Normal to Room Light Bone or Joint Aches: 1= Mild Discomfort Runny Nose/ Eye Tearin= Runny Nose/Eyes GI Upset > 30mins: 2= Nausea/Diarrhea Tremor Observation: 2= Slight Tremor Visible Yawning Observation: 1= 1-2x During Session Anxiety or Irritability: 2=Irritable/Anxious Goose Flesh Skin: 0=Smooth Skin COWS Score: 13 CIWA Score - CIWA Score Nausea/Vomitin Muscle Tremors: 2 Anxiety: 2 Agitation: 2 Paroxysmal Sweats: 2 Orientation: 0-Oriented Tacttile Disturbances: 0-None Auditory Disturbances: 0-None Visual Disturbances: 0-None Headache: 1-Very Mild CIWA-Ar Total Score: 12 Admission [facility] Chief Complaint: Heroin and ETOH withdrawal symptoms. Allergies/Adverse Reactions: Allergies Allergy/AdvReac Type Severity Reaction Status Date / Time Iodine and Iodide Containing Allergy Severe Swelling Verified 11/24/17 10:31 Produc shellfish derived Allergy Severe Swelling Verified 11/24/17 10:31 No Known Drug Allergies Allergy Verified 11/24/17 10:31 History of Present Illness: Patient presents for heroin and ETOH withdrawal symptoms. Started drinking ETOH at age 14 and heroin at age 29. Drinks up to 12 beers and 2 pints of vodka daily. Also snorts up to 12 bags of heroin daily. Last time he he used both substances was last night. Also smokes 1/2 ppd of cigarettes since age 14. Denies seizures from ETOH use/withdrawal. Overdosed once 2016 on heroin/ fentanyl. Has PMH of HTN, schizophrenia and Bipolar disorder. Denies SI/HI. Reports one suicide attempt in 1999 by taking pills. Exam Limitations: No Limitations - Ebola screening Have you traveled outside of the country in the last 21 days: No Have you had contact with anyone from an Ebola affected area: No Have you been sick,other than usual withdrawal symptoms: No Do you have a fever: No - Review of Systems Constitutional: Chills, Night Sweats, Changes in sleep EENT: reports: Nose Congestion Respiratory: reports: No Symptoms reported Cardiac: reports: No Symptoms Reported GI: reports: Diarrhea, Nausea, Poor Fluid Intake, Abdominal cramping : reports: No Symptoms Reported Musculoskeletal: reports: Back Pain Integumentary: reports: Sweating Neuro: reports: Headache, Tremors Endocrine: reports: No Symptoms Reported Hematology: reports: No Symptoms Reported Psychiatric: reports: Orientated x3, Anxious, Depressed Patient History - Patient Medical History Hx Anemia: No Hx Asthma: No Hx Chronic Obstructive Pulmonary Disease (COPD): No Hx Cancer: No Hx Cardiac Disorders: No Hx Congestive Heart Failure: No Hx Hypertension: Yes Hx Hypercholesterolemia: No Hx Pacemaker: No HX Cerebrovascular Accident: No Hx Seizures: No Hx Dementia: No Hx Diabetes: No Hx Gastrointestinal Disorders: Yes (peptice ulcer) Hx Liver Disease: No Hx Genitourinary Disorders: No Hx Sexually Transmitted Disorders: Yes (gonorrhea at age 18) Hx Renal Disease (ESRD): No Hx Thyroid Disease: No Hx Human Immunodeficiency Virus (HIV): No (NEGATIVE HX) Hx Hepatitis C: No Hx Depression: Yes Hx Suicide Attempt: Yes (pill overdose in 1999) Hx Bipolar Disorder: Yes (diagnosed in 1997 with schizoeffective tendencies, wason depacote, seroquel) Hx Schizophrenia: Yes (schizoaffective disorder) - Patient Surgical History Past Surgical History: Yes Hx Neurologic Surgery: No Hx Cataract Extraction: No Hx Cardiac Surgery: No Hx Lung Surgery: No Hx Breast Surgery: No Hx Breast Biopsy: No Hx Abdominal Surgery: Yes (perforated peptic ulcer in [place] in 1990) Hx Appendectomy: No Hx Cholecystectomy: No Hx Genitourinary Surgery: No Hx Section: No Hx Orthopedic Surgery: No Anesthesia Reaction: No - PPD History Previous Implant?: Yes Documented Results: Positive w/o proof Results: (-) cxr-10/24/15 PPD to be Administered?: No - Smoking Cessation Smoking history: Current every day smoker Have you smoked in the past 12 months: Yes Aproximately how many cigarettes per day: 10 Cigars Per Day: 0 Hx Chewing Tobacco Use: No Initiated information on smoking cessation: Yes 'Breaking Loose' booklet given: 11/24/17 - Substances Abused Heroin Route: Inhalation Frequency: Daily Amount used: 12 bags Age of first use: 29 Date of Last Use: 11/23/17 Alcohol-beer/vodka Route: Oral Frequency: Daily Amount used: 2-6 pks./2 pts. Age of first use: 14 Date of Last Use: 11/23/17 Xanax Route: Oral Frequency: 1-2 times per week Amount used: 2 mg. Age of first use: 44 Date of Last Use: 11/19/17 Family Disease History - Family Disease History Family Disease History: Heart Disease: Mother (Heart attack), Other: Father ( alcohol ) [facility] - Vital Signs Vital Signs: Vital Signs - 24 hr 11/24/17 10:16 Temperature 97 F L Pulse Rate 74 Respiratory 18 Rate Blood Pressure 148/108 - Physical General Appearance: Yes: No Apparent Distress, Appropriately Dressed, Sweating, Anxious HEENTM: Yes: EOMI, Hearing grossly Normal, Normal ENT Inspection, Normocephalic , Normal Voice, ANGEL, Pharynx Normal Respiratory: Yes: Chest Non-Tender, Lungs Clear, Normal Breath Sounds, No Respiratory Distress, No Accessory Muscle Use Neck: Yes: Within Normal Limits, No masses,lesions,Nodules, Supple, Trachea in good position Breast: Yes: Breast Exam Deferred Cardiology: Yes: Regular Rhythm, Regular Rate, S1, S2 Abdominal: Yes: Normal Bowel Sounds, Non Tender, Soft Genitourinary: Yes: Within Normal Limits Back: Yes: Normal Inspection, Muscle Spasm Musculoskeletal: Yes: Gait Steady, Back pain, Muscle Pain Extremities: Yes: Normal Inspection, Normal Range of Motion, Non-Tender, Tremors Neurological: Yes: inside account representative II-XII NML intact, Fully Oriented, Alert, Motor Strength 5/5, Depressed Affect Integumentary: Yes: Normal Color, Warm, Moist Lymphatic: Yes: Within Normal Limits - Diagnostic (1) Opioid dependence with withdrawal Current Visit: Yes Status: Acute (2) Schizoaffective disorder Current Visit: Yes Status: Chronic (3) Alcohol dependence with uncomplicated withdrawal Current Visit: Yes Status: Acute (4) Hypertension Current Visit: Yes Status: Chronic Qualifiers: Hypertension type: essential hypertension (5) Nicotine dependence Current Visit: Yes Status: Chronic Qualifiers: Nicotine product type: cigarettes Substance use status: uncomplicated Qualified Code(s): F17.210 - Nicotine dependence, cigarettes, uncomplicated Cleared for Admission [facility] - [facility]ox or Rehab [facility] Level of Care: Medically Managed Detox Regimen/Protocol: Methadone/Librium [facility] Breath Alcohol Content Breath Alcohol Content: 0 Urine Drug Screen - Results Drug Screen Negative: No Urine Drug Screen Results: OPI-Opiates
[2017-11-24] MEDS ORDERED: P-EPHED 60MG/TRIPROLIDI 2.5MG TABLET PO PRN (13:24)
[2017-11-24] MEDS ORDERED: LOPERAMIDE HCL 2 MG CAPSULE PO PRN (13:24)
[2017-11-24] MEDS ORDERED: MAGNESIUM CITRATE 300 ML BOTTLE PO PRN (13:24)
[2017-11-24] MEDS ORDERED: IBUPROFEN 400 MG TABLET (FP) PO PRN (13:24)
[2017-11-24] MEDS ORDERED: guaiFENesin/D-METHORPHAN HB 10 ML UNIT-DOSE CUPS PO PRN (13:24)
[2017-11-24] MEDS ORDERED: hydrOXYzine PAMOATE 50 MG CAPSULE (FP) PO PRN (13:24)
[2017-11-24] MEDS ORDERED: MAG HYDROX/AL HYDROX/SIMETH 30 ML UNIT-DOSE CUP PO PRN (13:24)
[2017-11-24] MEDS ORDERED: MAGNESIUM HYDROX 2400MG/30ML ORAL SUSPENSION 30 ML CUP PO PRN (13:24)
[2017-11-24] MEDS ORDERED: MENTHOL/PHENOL 1 EACH UD MM PRN (13:24)
[2017-11-24] MEDS ORDERED: NICOTINE POLACRILEX 2 MG GUM BC PRN (13:24)
[2017-11-24] MEDS ORDERED: chlordiazePOXIDE HCL 25 MG CAPSULE PO PRN (13:26)
[2017-11-24] MEDS ORDERED: chlordiazePOXIDE HCL 25 MG CAPSULE PO ONE (15:00)
[2017-11-24] MEDS ORDERED: METHADONE HCL 10 MG TABLET (FOR DETOX USE ONLY) PO ONE ×2 (15:00→23:00)
[2017-11-24] MEDS: chlordiazePOXIDE HCL 25 MG CAPSULE PO SCH ×2 (17:25→22:28)
[2017-11-24] MEDS ORDERED: MELATONIN 5 MG TABLETS PO PRN (22:00)
--- NOTE | 2017-11-24 22:04 | EKG ---
Test Reason : Blood Pressure : / mmHG Vent. Rate : 069 BPM Atrial Rate : 069 BPM P-R Int : 174 ms QRS Dur : 102 ms QT Int : 386 ms P-R-T Axes : 055 060 012 degrees QTc Int : 413 ms NORMAL SINUS RHYTHM VOLTAGE CRITERIA FOR LEFT VENTRICULAR HYPERTROPHY ABNORMAL ECG WHEN COMPARED WITH ECG OF 10-OCT-2016 15:18, T WAVE VARIATION Confirmed by PEEWEE PRICE MD ([id number]) on 11/24/2017 10:04:26 PM Referred By: Confirmed By:PEEWEE PRICE MD
[2017-11-24] MEDS: THIAMINE HCL 100 MG TABLET (FP) PO SCH (22:27)
[2017-11-24 23:01] LABS: URINE APPEARANCE CLOUDY; URINE BILIRUBIN NEGATIVE (<2.0 mg/dL); URINE COLOR AMBER; URINE GLUCOSE (UA) NEGATIVE (NEGATIVE); URINE KETONE NEGATIVE (NEGATIVE); URINE LEUK ESTERASE NEGATIVE (NEGATIVE); URINE NITRITE NEGATIVE (NEGATIVE); URINE PROTEIN NEGATIVE (NEGATIVE)
[2017-11-25] MEDS: chlordiazePOXIDE HCL 25 MG CAPSULE PO SCH ×4 (05:15→22:10)
[2017-11-25 09:55] LABS: HEMATOCRIT 39.4 % (35.4-49); HEMOGLOBIN 13.3 GM/dL (11.7-16.9); MCH 31.1 pg (25.7-33.7); MCHC 33.8 g/dl (32.0-35.9); MEAN CELL VOLUME 91.8 fl (80-96); MEAN PLT VOLUME 9.8 fl (7.5-11.1); PLATELET COUNT 214 K/MM3 (134-434); RBC 4.29 M/mm3 (4.00-5.60); RDW 14.8 % (11.9-15.9); WHITE BLOOD COUNT 10.7 K/mm3 (4.0-10.0)
[2017-11-25] MEDS ORDERED: METHADONE HCL 10 MG TABLET (FOR DETOX USE ONLY) PO SCH (10:00)
[2017-11-25] MEDS: PRENATAL VITAMINS W/ FOLIC ACID TABLET (FP) PO SCH (10:08)
[2017-11-25] MEDS: NICOTINE 21 MG/24 HOURS TOPICAL PATCH TD SCH (10:08)
[2017-11-25] MEDS: LISINOPRIL 10 MG TABLET (FP) PO SCH (10:08)
[2017-11-25] MEDS: HYDROCHLOROTHIAZIDE 25 MG TABLET (FP) PO SCH (10:08)
[2017-11-25 11:04] LABS: ALBUMIN 4.1 g/dl (3.4-5.0); ALK PHOS 87 U/L (45-117); ANION GAP 8 (8-16); BILIRUBIN,TOTAL 0.2 mg/dL (0.2-1.0); BLOOD UREA NITROGEN 16 mg/dL (7-18); CALCIUM 9.3 mg/dL (8.5-10.1); CHLORIDE 106 mmol/L (98-107); CO2 28 mmol/L (21-32); GLUCOSE,RANDOM 88 mg/dL (74-106); POTASSIUM 4.4 mmol/L (3.5-5.1); SGOT/AST 32 U/L (15-37); SGPT/ALT 99 U/L (12-78); SODIUM 142 mmol/L (136-145); TOT PROT 7.9 g/dl (6.4-8.2)
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
--- NOTE | 2017-11-25 13:28 | PN ---
S CIWA - CIWA Score Nausea/Vomitin-No Nausea/No Vomiting Muscle Tremors: 3 Anxiety: 4-Mod. Anxious/Guarded Agitation: 3 Paroxysmal Sweats: 3 Orientation: 0-Oriented Tacttile Disturbances: 2-Mild Itch/Numbness/Burn Auditory Disturbances: 2-Mild Harshness/Frighten Visual Disturbances: 0-None Headache: 0-None Present CIWA-Ar Total Score: 17 [facility] COWS - Scale Resting Pulse: 0= [place] 80 or Below Sweatin= Chills/Flushing Restless Observation: 1= Difficult to Sit Still Pupil Size: 0= Normal to Room Light Bone or Joint Aches: 2= Severe Diffuse Aches Runny Nose/ Eye Tearin= None GI Upset > 30mins: 2= Nausea/Diarrhea Tremor Observation of Outstretched Hands: 2= Slight Tremor Visible Yawning Observation: 1= 1-2x During Session Anxiety or Irritability: 2=Irritable/Anxious Goose Flesh Skin: 3=Piloerection COWS Score: 14 B[facility] Progress Note (SOAP) Subjective: Diarrhea, Tremors, Body Aches, Sweating. Objective: PATIENT A & O X 3, OBSERVED AMBULATING ON UNIT. NO ACUTE DISTRESS. 11/25/17 13:26 Vital Signs Temperature 96.5 F L 11/25/17 13:20 Pulse Rate 75 11/25/17 13:20 Respiratory Rate 18 11/25/17 13:20 Blood Pressure 150/86 11/25/17 13:20 O2 Sat by Pulse Oximetry (%) Laboratory Tests 11/24/17 11/24/17 11/25/17 11:00 23:00 06:00 WBC 10.7 H RBC 4.29 Hgb 13.3 Hct 39.4 MCV 91.8 MCH 31.1 MCHC 33.8 RDW 14.8 Plt Count 214 MPV 9.8 Sodium Potassium Chloride Carbon Dioxide Anion Gap BUN Creatinine Creat Clearance w eGFR Random Glucose Calcium Total Bilirubin AST ALT Alkaline Phosphatase Total Protein Albumin Urine Color [place] Urine Appearance Cloudy Urine pH 5.0 D Ur Specific [place] 1.030 Urine Protein Negative Urine Glucose (UA) Negative Urine Ketones Negative Urine Blood Negative Urine Nitrite Negative Urine Bilirubin Negative Urine Urobilinogen 2.0 Ur Leukocyte Esterase Negative HIV 1&2 Antibody Screen Negative HIV P24 Antigen Negative 11/25/17 06:00 WBC RBC Hgb Hct MCV MCH MCHC RDW Plt Count MPV Sodium 142 Potassium 4.4 Chloride 106 Carbon Dioxide 28 Anion Gap 8 BUN 16 D Creatinine 1.0 D Creat Clearance w eGFR > 60 Random Glucose 88 D Calcium 9.3 Total Bilirubin 0.2 D AST 32 D ALT 99 H D Alkaline Phosphatase 87 D Total Protein 7.9 Albumin 4.1 Urine Color Urine Appearance Urine pH Ur Specific [place] Urine Protein Urine Glucose (UA) Urine Ketones Urine Blood Urine Nitrite Urine Bilirubin Urine Urobilinogen Ur Leukocyte Esterase HIV 1&2 Antibody Screen HIV P24 Antigen LABS NOTED. RPR RESULT PENDING. 11/25/17 13:27 Assessment: 11/25/17 13:27 WITHDRAWAL SYMPTOMS. Plan: CONTINUE DETOX.
[2017-11-25] MEDS: ACETAMINOPHEN 325 MG TABLET (FP) PO PRN (13:56)
[2017-11-25] MEDS ORDERED: traZODone HCL 100 MG TABLET (FP) PO SCH (22:00)
[2017-11-25] MEDS ORDERED: QUEtiapine FUMARATE 200 MG TABLET PO SCH (22:00)
[2017-11-25] MEDS: THIAMINE HCL 100 MG TABLET (FP) PO SCH (22:10)
[2017-11-25] MEDS: DIVALPROEX SODIUM 500 MG TABLET E.C. PO SCH (22:10)
[2017-11-26] MEDS: chlordiazePOXIDE HCL 25 MG CAPSULE PO SCH ×2 (05:26→10:04)
[2017-11-26] MEDS: ACETAMINOPHEN 325 MG TABLET (FP) PO PRN ×2 (08:35→16:31)
[2017-11-26] MEDS ORDERED: METHADONE HCL 5 MG TABLET (FOR DETOX USE ONLY) PO SCH (10:00)
[2017-11-26] MEDS ORDERED: QUEtiapine FUMARATE 100 MG TABLET (FP) PO SCH (10:00)
[2017-11-26] MEDS: PRENATAL VITAMINS W/ FOLIC ACID TABLET (FP) PO SCH (10:03)
[2017-11-26] MEDS: DIVALPROEX SODIUM 500 MG TABLET E.C. PO SCH (10:03)
[2017-11-26] MEDS: LISINOPRIL 10 MG TABLET (FP) PO SCH (10:03)
[2017-11-26] MEDS: HYDROCHLOROTHIAZIDE 25 MG TABLET (FP) PO SCH (10:03)
[2017-11-26] MEDS: NICOTINE 21 MG/24 HOURS TOPICAL PATCH TD SCH (10:04)
--- NOTE | 2017-11-26 11:25 | PN ---
[facility] COWS - Scale Resting Pulse: 1= [place] 81-100 Sweatin= Chills/Flushing Restless Observation: 1= Difficult to Sit Still Pupil Size: 0= Normal to Room Light Bone or Joint Aches: 0= None Runny Nose/ Eye Tearin= Nasal Congestion GI Upset > 30mins: 0= None Tremor Observation of Outstretched Hands: 2= Slight Tremor Visible Yawning Observation: 2= >3x During Session Anxiety or Irritability: 2=Irritable/Anxious Goose Flesh Skin: 3=Piloerection COWS Score: 13 BHS Progress Note (SOAP) Subjective: Fatigue, Tremors, Sweating. Objective: PATIENT A & O X 3, OBSERVED AMBULATING ON UNIT. NO ACUTE DISTRESS. 11/26/17 11:21 Vital Signs Temperature 97.1 F L 11/26/17 09:11 Pulse Rate 85 11/26/17 09:11 Respiratory Rate 20 11/26/17 09:11 Blood Pressure 137/87 11/26/17 09:11 O2 Sat by Pulse Oximetry (%) Laboratory Tests 11/24/17 11/24/17 11/25/17 11:00 23:00 06:00 WBC 10.7 H RBC 4.29 Hgb 13.3 Hct 39.4 MCV 91.8 MCH 31.1 MCHC 33.8 RDW 14.8 Plt Count 214 MPV 9.8 Sodium Potassium Chloride Carbon Dioxide Anion Gap BUN Creatinine Creat Clearance w eGFR Random Glucose Calcium Total Bilirubin AST ALT Alkaline Phosphatase Total Protein Albumin Urine Color [place] Urine Appearance Cloudy Urine pH 5.0 D Ur Specific [place] 1.030 Urine Protein Negative Urine Glucose (UA) Negative Urine Ketones Negative Urine Blood Negative Urine Nitrite Negative Urine Bilirubin Negative Urine Urobilinogen 2.0 Ur Leukocyte Esterase Negative HIV 1&2 Antibody Screen Negative HIV P24 Antigen Negative 11/25/17 06:00 WBC RBC Hgb Hct MCV MCH MCHC RDW Plt Count MPV Sodium 142 Potassium 4.4 Chloride 106 Carbon Dioxide 28 Anion Gap 8 BUN 16 D Creatinine 1.0 D Creat Clearance w eGFR > 60 Random Glucose 88 D Calcium 9.3 Total Bilirubin 0.2 D AST 32 D ALT 99 H D Alkaline Phosphatase 87 D Total Protein 7.9 Albumin 4.1 Urine Color Urine Appearance Urine pH Ur Specific [place] Urine Protein Urine Glucose (UA) Urine Ketones Urine Blood Urine Nitrite Urine Bilirubin Urine Urobilinogen Ur Leukocyte Esterase HIV 1&2 Antibody Screen HIV P24 Antigen LABS NOTED. RPR RESULT PENDING. 11/26/17 11:24 Assessment: 11/26/17 11:21 WITHDRAWAL SYMPTOMS. Plan: CONTINUE DETOX. PATIENT APPEARS LETHARGIC AND REPORTS THAT HE FEELS TIRED. 5 PM DOSE OF LIBRIUM HELD, 11 PM DOSE TO BE GIVEN PENDING EVENING EVALUATION BY PATIENT'S RN. PRN LIBRIUM HELD UNTIL TOMORROW, WILL BE RESUMED PENDING TOMORROW AM EVALUATION OF PATIENT.
[2017-11-26] MEDS ORDERED: chlordiazePOXIDE 5 MG CAPSULE PO SCH (17:00)
[2017-11-26 18:00] VITALS: BP 131/89; PULSE 78; TEMP 95.6
--- NOTE | 2017-11-26 18:01 | DS ---
[facility] Detox Discharge Summary Admission Date: 11/24/17 - Physical Exam Results Vital Signs: Vital Signs Temperature 95.6 F L 11/26/17 17:59 Pulse Rate 78 11/26/17 17:59 Respiratory Rate 18 11/26/17 17:59 Blood Pressure 131/89 11/26/17 17:59 O2 Sat by Pulse Oximetry (%) - Medication Discharge Medications: Ambulatory Orders traZODone HCL [Desyrel -] 100 mg PO HS #30 tablet 10/02/16 Hydrochlorothiazide [Hctz -] 25 mg PO DAILY #30 tablet 10/04/16 Lisinopril [Prinivil] 10 mg PO DAILY #30 tablet 10/04/16 Divalproex [Depakote -] 500 mg PO BID #60 tablet.ec 10/20/16 Quetiapine Fumarate [Seroquel -] 300 mg PO HS #30 tablet 10/20/16 Quetiapine Fumarate [Seroquel] 100 mg PO DAILY #30 tablet 10/20/16 - Diagnosis (1) Opioid dependence with withdrawal Current Visit: Yes Status: Acute (2) Schizoaffective disorder Current Visit: Yes Status: Chronic (3) Alcohol dependence with uncomplicated withdrawal Current Visit: Yes Status: Acute (4) Hypertension Current Visit: Yes Status: Chronic Qualifiers: Hypertension type: essential hypertension Qualified Code(s): I10 - Essential (primary) hypertension (5) Nicotine dependence Current Visit: Yes Status: Acute Qualifiers: Nicotine product type: cigarettes Substance use status: uncomplicated Qualified Code(s): F17.210 - Nicotine dependence, cigarettes, uncomplicated - AMA Did Patient Leave Against Medical Advice: Yes
--- NOTE | 2017-11-26 18:03 | PN ---
[facility] Progress Note Note: Notified by RN that patient wants to sign out AMA. Patient refused to wait to speak to DISPOSAL WORKER.
[2017-11-27] MEDS ORDERED: chlordiazePOXIDE HCL 10 MG CAPSULE PO SCH (17:00)
[2017-11-28] MEDS ORDERED: METHADONE HCL 10 MG TABLET (FOR DETOX USE ONLY) PO SCH (10:00)
--- NOTE | 2017-11-28 13:24 | PN ---
[facility] Progress Note Note: Psychiatry Attending's follow-up note : Patient left program on 09/26/17. By own volition. As per staff's notes,patient refused to continue treatment. Declined medications.
[2017-11-29] MEDS ORDERED: METHADONE HCL 5 MG TABLET (FOR DETOX USE ONLY) PO SCH (06:00)
== END 2017-11-26 18:10 | disposition left against medical advice (07) | DRG 770 ==
LOC: YASAS 08:13 → Y3N 13:57
PROVIDERS: ADMIT Internal Medicine; ATTEND Internal Medicine
PROC: HZ2ZZZZ Detoxification Services for Substance Abuse Treatment (ICD-10-PCS; principal; 2017-11-24)
DX: F11.23 Opioid dependence with withdrawal (principal); F10.230 Alcohol dependence with withdrawal, uncomplicated; F17.210 Nicotine dependence, cigarettes, uncomplicated; F25.9 Schizoaffective disorder, unspecified; G47.00 Insomnia, unspecified; I10 Essential (primary) hypertension; Z86.19 Personal history of other infectious and parasitic diseases; Z91.5 Personal history of self-harm; Z87.11 Personal history of peptic ulcer disease
CPT/HCPCS: 36415; 71046-TC-FY; 80053; 81003; 85027; 86593; 87389; 93005; 93010

== ENCOUNTER 2018-06-05 13:42 | Inpatient (IN) | payer OTHER ==
[2018-06-05 14:47] VITALS: BMI 25.4
--- NOTE | 2018-06-05 21:16 | HP ---
CIWA Score - Admission Criteria [facility]ASAS Guidelines: Admission for Medically Managed Detox: Requires at least one of the followin. CIWA greater than 12 2. Seizures within the past 24 hours 3. Delirium tremens within the past 24 hours 4. Hallucinations within the past 24 hours 5. Acute intervention needed for co occurring medical disorder 6. Acute intervention needed for co occurring psychiatric disorder 7. Severe withdrawal that cannot be handled at a lower level of care (continued vomiting, continued diarrhea, abnormal vital signs) requiring intravenous medication and/or fluids 8. Admission ROS [facility] - HPI Allergies/Adverse Reactions: Allergies Allergy/AdvReac Type Severity Reaction Status Date / Time Iodine and Iodide Containing Allergy Severe Swelling Verified 06/05/18 22:25 Produc shellfish derived Allergy Severe Swelling Verified 06/05/18 22:25 No Known Drug Allergies Allergy Verified 06/05/18 22:25 History of Present Illness: pt here requesting rehab for etoh and heroin use , s/p detox @ [facility] completed today . prior use 11-12 bags /day via inhalation , denies IVDU , etoh 2-3 x 6-pk / day beer ,has had prior detox x 6. first age of use etoh : 14 heroin : since age 29 utox + MTD , + BZO nomi 0.000 PMHX : current uri symptoms , was treated at [facility] , hep C no treatment ( RF= ST) pshx : 1990 - gastric ulcer psych : bipolar d.o, SAD meds - [facility] d/c Trazodone, Seroquel, Depakote tobacco - 1/2 ppd , requesting nrt w/ gum - Ebola screening Have you traveled outside of the country in the last 21 days: No Have you had contact with anyone from an Ebola affected area: No Have you been sick,other than usual withdrawal symptoms: No Do you have a fever: No - Review of Systems Constitutional: No Symptoms Reported EENT: reports: Nose Congestion Respiratory: reports: Cough, Productive cough, Other (1 week ,) Cardiac: reports: No Symptoms Reported GI: reports: No Symptoms Reported : reports: No Symptoms Reported Musculoskeletal: reports: Back Pain Integumentary: reports: No Symptoms Reported Neuro: reports: No Symptoms reported Endocrine: reports: No Symptoms Reported Psychiatric: reports: Judgement Intact, Orientated x3, other (see HPI) Patient History - Patient Medical History Hx Anemia: No Hx Asthma: No Hx Chronic Obstructive Pulmonary Disease (COPD): No Hx Cancer: No Hx Cardiac Disorders: No Hx Congestive Heart Failure: No Hx Hypertension: Yes Hx Hypercholesterolemia: No Hx Pacemaker: No HX Cerebrovascular Accident: No Hx Seizures: No Hx Dementia: No Hx Diabetes: No Hx Gastrointestinal Disorders: Yes (peptice ulcer) Hx Liver Disease: No Hx Genitourinary Disorders: No Hx Sexually Transmitted Disorders: Yes (gonorrhea at age 18) Hx Renal Disease (ESRD): No Hx Thyroid Disease: No Hx Human Immunodeficiency Virus (HIV): No (NEGATIVE HX) Hx Hepatitis C: No Hx Depression: Yes Hx Suicide Attempt: Yes (pill overdose in 1999) Hx Bipolar Disorder: Yes (diagnosed in 1997 with schizoeffective tendencies, wason depacote, seroquel) Hx Schizophrenia: Yes (schizoaffective disorder) - Patient Surgical History Past Surgical History: Yes Hx Neurologic Surgery: No Hx Cataract Extraction: No Hx Cardiac Surgery: No Hx Lung Surgery: No Hx Breast Surgery: No Hx Breast Biopsy: No Hx Abdominal Surgery: Yes (perforated peptic ulcer in [place] in 1990) Hx Appendectomy: No Hx Cholecystectomy: No Hx Genitourinary Surgery: No Hx Section: No Hx Orthopedic Surgery: No Anesthesia Reaction: No - PPD History Results: (-) cxr-10/24/15 - Smoking Cessation Smoking history: Current every day smoker Have you smoked in the past 12 months: Yes Aproximately how many cigarettes per day: 10 Cigars Per Day: 0 Hx Chewing Tobacco Use: No Initiated information on smoking cessation: No Family Disease History - Family Disease History Family Disease History: Heart Disease: Mother (Heart attack), Other: Father ( alcohol ) Admission Physical Exam [facility] - Vital Signs Vital Signs: Vital Signs - 24 hr 06/05/18 14:44 Temperature 96.1 F L Pulse Rate 75 Respiratory 17 Rate Blood Pressure 136/98 - Physical General Appearance: Yes: No Apparent Distress, Disheveled, Anxious HEENTM: Yes: Hearing grossly Normal, Normocephalic, Normal Voice, Other (very poor dentition , caries) Neck: Yes: No masses,lesions,Nodules, Trachea in good position Breast: Yes: Breast Exam Deferred Cardiology: Yes: Regular Rhythm, Regular Rate, S1, S2 Abdominal: Yes: Normal Bowel Sounds, Non Tender, Protuberent, Surgical Scar Genitourinary: Yes: Within Normal Limits Musculoskeletal: Yes: full range of Motion, Gait Steady Extremities: Yes: Normal Capillary Refill, Normal Inspection, Non-Tender Neurological: Yes: Fully Oriented, Motor Strength 5/5, Normal Mood/Affect Integumentary: Yes: Normal Color, Dry, Warm - Diagnostic (1) Alcohol dependence Current Visit: No Status: Acute Qualifiers: Substance use status: in remission Qualified Code(s): F10.21 - Alcohol dependence, in remission (2) Bipolar disorder Current Visit: No Status: Acute (3) Nicotine dependence Current Visit: Yes Status: Acute Qualifiers: Nicotine product type: cigarettes Substance use status: uncomplicated Qualified Code(s): F17.210 - Nicotine dependence, cigarettes, uncomplicated (4) Opioid dependence Current Visit: No Status: Chronic Qualifiers: Substance use status: in remission Qualified Code(s): F11.21 - Opioid dependence, in remission (5) Schizoaffective disorder Current Visit: Yes Status: Chronic BHS Breath Alcohol Content Breath Alcohol Content: 0 Urine Drug Screen - Results Drug Screen Negative: No Urine Drug Screen Results: BZO-Benzodiazepines, MTD-Methadone Inpatient Rehab Admission - Initial Determination Are CD services needed?: Yes Free of communicable disease: Yes Not in need of hospitalization: Yes - Rehab Admission Criteria Previous failed treatment: No Poor recovery environment: No Comorbidities: Yes Lacks judgement: Yes Patient is meeting Inpatient Rehab admission criteria:: Yes
[2018-06-05] MEDS ORDERED: ACETAMINOPHEN 325 MG TABLET (FP) PO PRN (21:20)
[2018-06-05] MEDS ORDERED: guaiFENesin/D-METHORPHAN HB 10 ML UNIT-DOSE CUPS PO PRN (21:20)
[2018-06-05] MEDS ORDERED: MAGNESIUM HYDROX 2400MG/30ML ORAL SUSPENSION 30 ML CUP PO PRN (21:20)
[2018-06-05] MEDS ORDERED: IBUPROFEN 400 MG TABLET (FP) PO PRN (21:20)
[2018-06-05] MEDS ORDERED: MENTHOL/PHENOL 1 EACH UD MM PRN (21:20)
[2018-06-05] MEDS ORDERED: MAG HYDROX/AL HYDROX/SIMETH 30 ML UNIT-DOSE CUP PO PRN (21:20)
[2018-06-05] MEDS ORDERED: MAGNESIUM CITRATE 300 ML BOTTLE PO PRN (21:20)
[2018-06-05] MEDS ORDERED: MELATONIN 5 MG TABLETS PO PRN (22:00)
[2018-06-05] MEDS: THIAMINE HCL 100 MG TABLET (FP) PO SCH (23:36)
[2018-06-05] MEDS: traZODone HCL 100 MG TABLET (FP) PO SCH (23:36)
[2018-06-06] MEDS: P-EPHED 60MG/TRIPROLIDI 2.5MG TABLET PO PRN ×2 (10:00→21:28)
[2018-06-06] MEDS: PRENATAL VITAMINS W/ FOLIC ACID TABLET (FP) PO SCH (10:00)
[2018-06-06 11:25] LABS: ALK PHOS 56 U/L (45-117); ANION GAP 6 MMOL/L (8-16); BILIRUBIN,TOTAL 0.4 mg/dL (0.2-1); BLOOD UREA NITROGEN 11 mg/dL (7-18); CALCIUM 8.4 mg/dL (8.5-10.1); CHLORIDE 104 mmol/L (98-107); CO2 31 mmol/L (21-32); CREATININE 0.7 mg/dL (0.55-1.3); GLUCOSE,RANDOM 77 mg/dL (74-106); POTASSIUM 4.4 mmol/L (3.5-5.1); SGOT/AST 19 U/L (15-37); SGPT/ALT 48 U/L (13-61); SODIUM 141 mmol/L (136-145); TOT PROT 6.6 g/dl (6.4-8.2)
[2018-06-06 11:35] LABS: HEMATOCRIT 39.1 % (35.4-49); HEMOGLOBIN 12.8 GM/dL (11.7-16.9); MCH 29.4 pg (25.7-33.7); MCHC 32.7 g/dl (32.0-35.9); MEAN CELL VOLUME 89.7 fl (80-96); MEAN PLT VOLUME 9.1 fl (7.5-11.1); PLATELET COUNT 211 K/MM3 (134-434); RBC 4.36 M/mm3 (4.00-5.60); RDW 14.8 % (11.9-15.9); WHITE BLOOD COUNT 6.7 K/mm3 (4.0-10.0)
[2018-06-06 11:54] LABS: URINE APPEARANCE CLEAR; URINE BILIRUBIN NEGATIVE (<2.0 mg/dL); URINE COLOR STRAW; URINE GLUCOSE (UA) NEGATIVE (NEGATIVE); URINE KETONE NEGATIVE (NEGATIVE); URINE LEUK ESTERASE NEGATIVE (NEGATIVE); URINE NITRITE NEGATIVE (NEGATIVE); URINE PROTEIN NEGATIVE (NEGATIVE); URINE UROBILINOGEN NEGATIVE mg/dL (0.2-1.0)
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
[2018-06-06] MEDS: QUEtiapine FUMARATE 200 MG TABLET PO SCH (21:29)
[2018-06-06] MEDS: THIAMINE HCL 100 MG TABLET (FP) PO SCH (21:29)
[2018-06-06] MEDS: traZODone HCL 100 MG TABLET (FP) PO SCH (21:29)
[2018-06-06] MEDS: DIVALPROEX SODIUM 500 MG TABLET E.C. PO SCH (21:29)
[2018-06-07] MEDS: P-EPHED 60MG/TRIPROLIDI 2.5MG TABLET PO PRN (06:16)
[2018-06-07] MEDS: DIVALPROEX SODIUM 500 MG TABLET E.C. PO SCH ×2 (10:26→21:25)
[2018-06-07] MEDS: PRENATAL VITAMINS W/ FOLIC ACID TABLET (FP) PO SCH (10:26)
[2018-06-07] MEDS: THIAMINE HCL 100 MG TABLET (FP) PO SCH (21:25)
[2018-06-07] MEDS: traZODone HCL 100 MG TABLET (FP) PO SCH (21:25)
[2018-06-07] MEDS: QUEtiapine FUMARATE 200 MG TABLET PO SCH (21:27)
[2018-06-08] MEDS: PRENATAL VITAMINS W/ FOLIC ACID TABLET (FP) PO SCH (09:50)
[2018-06-08] MEDS: DIVALPROEX SODIUM 500 MG TABLET E.C. PO SCH ×2 (09:50→22:03)
[2018-06-08] MEDS: traZODone HCL 100 MG TABLET (FP) PO SCH (22:03)
[2018-06-08] MEDS: QUEtiapine FUMARATE 200 MG TABLET PO SCH (22:03)
[2018-06-08] MEDS: THIAMINE HCL 100 MG TABLET (FP) PO SCH (22:03)
[2018-06-09] MEDS: DIVALPROEX SODIUM 500 MG TABLET E.C. PO SCH ×2 (09:51→21:43)
[2018-06-09] MEDS: PRENATAL VITAMINS W/ FOLIC ACID TABLET (FP) PO SCH (09:51)
[2018-06-09] MEDS: LISINOPRIL 10 MG TABLET (FP) PO SCH (11:12)
[2018-06-09] MEDS: HYDROCHLOROTHIAZIDE 25 MG TABLET (FP) PO SCH (11:12)
[2018-06-09] MEDS: traZODone HCL 100 MG TABLET (FP) PO SCH (21:43)
[2018-06-09] MEDS: THIAMINE HCL 100 MG TABLET (FP) PO SCH (21:43)
[2018-06-09] MEDS: QUEtiapine FUMARATE 200 MG TABLET PO SCH (21:43)
[2018-06-10 06:47] VITALS: TEMP 97.6
[2018-06-10] MEDS: PRENATAL VITAMINS W/ FOLIC ACID TABLET (FP) PO SCH (09:51)
[2018-06-10] MEDS: DIVALPROEX SODIUM 500 MG TABLET E.C. PO SCH (09:51)
[2018-06-10] MEDS: HYDROCHLOROTHIAZIDE 25 MG TABLET (FP) PO SCH (09:51)
[2018-06-10] MEDS: LISINOPRIL 10 MG TABLET (FP) PO SCH (09:51)
[2018-06-10 09:53] VITALS: BP 122/84; PULSE 92
== END 2018-06-10 17:00 | disposition left against medical advice (07) | DRG 770 ==
LOC: YASAS 13:42 → Y3W 19:15
PROVIDERS: ADMIT Psychiatry & Neurology Psychiatry; ATTEND Psychiatry & Neurology Psychiatry
PROC: HZ42ZZZ Group Counseling for Substance Abuse Treatment, Cognitive-Behavioral (ICD-10-PCS; principal; 2018-06-05)
DX: F11.20 Opioid dependence, uncomplicated (principal); F10.20 Alcohol dependence, uncomplicated; F17.210 Nicotine dependence, cigarettes, uncomplicated; F25.9 Schizoaffective disorder, unspecified; F31.9 Bipolar disorder, unspecified; G47.00 Insomnia, unspecified; Z87.438 Personal history of other diseases of male genital organs; Z91.5 Personal history of self-harm
CPT/HCPCS: 36415; 80053; 80164; 81003; 85027; 86593